=== PATIENT | male | born 1985 | race Caucasian/White ===

== ENCOUNTER 2017-06-09 08:24 | Emergency (ER) | payer SELFPAY ==
[~2017-06-09] VITALS: Ht 172.7 cm; Wt 74.8 kg
[~2017-06-09 08:24] MED LIST: CEPH-569; MECL-102
[2017-06-09 08:32] VITALS: BP 143/75
[2017-06-09] MEDS ORDERED: IV NS 0.9% 1,000 ML BAG IV ONE (09:00)
[2017-06-09] MEDS ORDERED: DICYCLOMINE HCL INJ 20 MG/2 ML AMPUL IM ONE ×2 (09:00→09:02)
[2017-06-09] MEDS ORDERED: DIPHENOXYLATE HCL/ATROP SULF 1 UDTAB TABLET PO ONE (09:00)
[2017-06-09] MEDS ORDERED: ONDANSETRON HCL/PF 4 MG/2 ML VIAL IVP ONE (09:00)
[2017-06-09] MEDS ORDERED: ONDANSETRON HCL/PF 4 MG/2 ML VIAL ONE (09:02)
[2017-06-09] MEDS ORDERED: DIPHENOXYLATE HCL/ATROP SULF 1 UDTAB TABLET ONE (09:02)
--- NOTE | 2017-06-09 09:14 | NUR ---
pt refused further treatment. screaming "I dont need any of these medications". aware. pt left with all belongings, ambulatory with steady gait.
== END 2017-06-09 09:17 | disposition left against medical advice (07) ==
LOC: ER 08:31
DX: R19.7 Diarrhea, unspecified (principal); R11.2 Nausea with vomiting, unspecified
CPT/HCPCS: A4606; J0500; J2405; J7030; Z7610